=== PATIENT | male | born 1985 | race Two or more races ===

== ENCOUNTER 2020-11-20 09:20 | Emergency (ER) | payer SELFPAY ==
[~2020-11-20] VITALS: Ht 172.7 cm; Wt 81.0 kg
[2020-11-20 09:24] VITALS: BP 120/70
--- NOTE | 2020-11-20 10:38 | NUR ---
Patient given discharge instructions and they have confirmed that they understand the instructions. Patient ambulatory with steady gait.
== END 2020-11-20 10:39 | disposition home or self-care (01) ==
LOC: ED 10:16
DX: E11.65 Type 2 diabetes mellitus with hyperglycemia (principal); Z76.0 Encounter for issue of repeat prescription; L73.9 Follicular disorder, unspecified
CPT/HCPCS: 82962; 99283